=== PATIENT | female | born 1975 | race Caucasian/White ===

== ENCOUNTER → 2019-12-07 | Outpatient (CLI) | payer OTHER ==
--- NOTE | 2019-12-07 19:36 | Diagnostic Imaging Report ---
EXAM: Digital mammogram bilateral screening INDICATION: Baseline exam COMPARISON: This is the patient's baseline study. There are no current complaints. FINDINGS: The fibroglandular tissue in both breasts is heterogeneously dense. This does limit the sensitivity of this exam. In the upper outer aspect of the left breast approximately 10 cm from the nipple there is a 2.2 x 3.6 cm area of mixed density. The tomographic images suggest that there may be a capsule around this finding. This could represent a benign process such as a fibroadenolipoma. I would recommend that a compression view of this area be obtained in the CC and MLO projections for further study. Ultrasound should also be performed. There is no primary or secondary sign of malignancy noted. IMPRESSION: Additional mammographic views and ultrasound of the left breast would be recommended for further study. ACR BI-RADS Category 0: Incomplete. (Needs additional imaging evaluation). Result letter will be mailed to the patient. Note: At least 10% of breast cancer is not imaged by mammography. Dictated by: Dictated on workstation # [id number]
== END ==
LOC: RAD 10:43
PROVIDERS: ATTEND Nurse Practitioner Family
DX: Z12.31 Encounter for screening mammogram for malignant neoplasm of breast (principal)
CPT/HCPCS: 77063; 77067

== ENCOUNTER → 2019-12-23 | Outpatient (CLI) | payer OTHER ==
--- NOTE | 2019-12-23 10:28 | Diagnostic Imaging Report ---
INDICATION: Left breast density. Patient presents for additional views. Correlation is made with screening study from 12/07/2019. Unilateral left 2-D and 3-D diagnostic mammography was performed including spot compression CC and ML views as well as conventional 90 degree lateral view. There is persistent density in the upper outer left breast. This has the appearance of fibroglandular tissue. No discrete mass or suspicious calcifications are identified. IMPRESSION: BI-RADS 0 Persistent density upper outer left breast, likely fibroglandular tissue. Even so, directed sonographic interrogation of this region is recommended and will be performed today. ACR BI-RADS Category 0: Incomplete. (Needs additional imaging evaluation). Result letter will be mailed to the patient. Note: At least 10% of breast cancer is not imaged by mammography. Dictated by: Dictated on workstation # [id number]
--- NOTE | 2019-12-23 11:26 | Diagnostic Imaging Report ---
INDICATION: Left breast asymmetry. CORRELATION is made with diagnostic mammogram earlier same day and screening mammogram from 12/07/2019. Sonographic interrogation upper-outer left breast was performed. There is some heterogeneous breast tissue at the 1:00 - 2:00 location of the left breast corresponding to the mammographic and normality. No concerning sonographic finding is identified. No mass or fluid collection is identified. IMPRESSION: BI-RADS Category 2 Heterogeneous breast tissue upper outer left breast accounting for the mammographic density. No concerning sonographic findings are seen. The patient may return to routine annual screening mammography. ACR BI-RADS Category 2: Benign findings. Result letter will be mailed to the patient. Note: At least 10% of breast cancer is not imaged by mammography. Dictated by: Dictated on workstation # [id number]
== END ==
LOC: RAD 09:23
PROVIDERS: ATTEND Nurse Practitioner Family
DX: R92.2 Inconclusive mammogram (principal)
CPT/HCPCS: 76642; 77065; G0279